=== PATIENT | male | born 1945 | race African-American/Black ===

== ENCOUNTER 2021-09-28 13:01 | Emergency (ER) | payer OTHER ==
[~2021-09-28] VITALS: Ht 170.2 cm; Wt 90.7 kg
[2021-09-28 14:17] LABS: PLATELET COUNT 265 K/uL (142-355)
[2021-09-28 14:25] LABS: POTASSIUM 3.7 mmol/L (3.6-5.2)
[2021-09-28 19:25] VITALS: BP 146/70; TEMP 97.2
== END 2021-09-28 19:25 | disposition home or self-care (01) ==
LOC: ED 13:01
PROVIDERS: Family Medicine
DX: K57.92 Diverticulitis of intestine, part unspecified, without perforation or abscess without bleeding (principal); R73.9 Hyperglycemia, unspecified; E86.0 Dehydration; N18.9 Chronic kidney disease, unspecified
CPT/HCPCS: 80053; 81002; 82150; 83690; 85027; 96360; 96365; 96375; 99284; J0696; J1885; J2405